=== PATIENT | male | born 1960 | race Caucasian/White ===

== ENCOUNTER 2019-10-23 17:39 | Emergency (ER) | payer OTHER ==
[~2019-10-23] VITALS: Ht 180.3 cm; Wt 121.6 kg
[2019-10-23] MEDS ORDERED: ONDANSETRON HCL INJ 2MG/ML 2ML 2 MG/ML VIAL IV ONE (17:56)
[2019-10-23] MEDS ORDERED: MORPHINE SULFATE INJ 4 MG/ML INJ 1ML IV PRN (18:00)
[2019-10-23 18:27] LABS: BASOPHILS % 0.3 % (0.0-1.0); EOSINOPHILS # (AUTO) 0.1 (0.0-0.4); HEMATOCRIT 40.9 % (38.2-49.6); HEMOGLOBIN 14.1 g/dL (14.0-18.0); LYMPHOCYTES # (AUTO) 3.4 (1.0-3.2); LYMPHOCYTES % 34.9 % (18.0-39.1); MEAN CORPUSCULAR HEMOGLOBIN 30.8 pg (28-32); MEAN CORPUSCULAR HGB CONC 34.5 g/dL (31-35); MEAN CORPUSCULAR VOLUME 89.3 fL (81-99); MONOCYTES # (AUTO) 0.6 (0.2-0.8); NEUTROPHILS # (AUTO) 5.5 (2.1-6.9); NEUTROPHILS % 57.5 % (38.7-80.0); PLATELET COUNT 229 x10e3/uL (140-360); RED BLOOD COUNT 4.58 x10e6/uL (4.3-5.7)
[2019-10-23 18:47] LABS: CLARITY,URINE SL CLOUDY (CLEAR); COLOR,URINE YELLOW (YELLOW)
[2019-10-23 18:48] LABS: ALANINE AMINOTRANSFERASE 48 IU/L (0-55); ALBUMIN 4.1 g/dL (3.5-5.0); ALBUMIN/GLOBULIN RATIO 1.2 (0.8-2.0); ALKALINE PHOSPHATASE 72 IU/L (40-150); ANION GAP 14.7 mmol/L (8-16); BILIRUBIN,URINE NEGATIVE (NEGATIVE); BLOOD UREA NITROGEN 18 mg/dL (7-26); BUN/CREATININE RATIO 19 (6-25); CALCIUM 9.2 mg/dL (8.4-10.2); CARBON DIOXIDE 23 mmol/L (22-29); CHLORIDE 103 mmol/L (98-107); CREATININE, SERUM 0.96 mg/dL (0.72-1.25); EST GLOMERULAR FILTRATION RATE > 60 ML/MIN (60-); GLUCOSE 100 mg/dL (74-118); KETONES,URINE NEGATIVE (NEGATIVE); LEUKOCYTE ESTERASE ,URINE NEGATIVE (NEGATIVE); LIPASE 26 U/L (8-78); NITRITE,URINE NEGATIVE (NEGATIVE); POTASSIUM 3.7 mmol/L (3.5-5.1); PROTEIN,URINE DIPSTICK NEGATIVE (NEGATIVE); SODIUM 137 mmol/L (136-145); URINE UROBILINOGEN 0.2 mg/dL (0.2 - 1)
--- NOTE | 2019-10-23 18:52 | Diagnostic Imaging Report ---
EXAMINATION: CT of the abdomen and pelvis without contrast. TECHNIQUE: Spiral CT images of the abdomen and pelvis were performed from the lung bases to the lesser trochanters. No intravenous contrast was given per physician's request. Coronal and sagittal reformatted images were obtained. COMPARISON: None. CLINICAL HISTORY:Abdominal pain for 2 days, left side, loss of appetite. History of lithotripsy for bladder stones. DISCUSSION: ABSENCE OF INTRAVENOUS CONTRAST DECREASES SENSITIVITY FOR DETECTION OF FOCAL LESIONS AND VASCULAR PATHOLOGY. ABDOMEN/PELVIS: LOWER THORAX: Lung bases are clear. Atherosclerotic calcification of the coronary arteries. HEPATOBILIARY: Decreased attenuation of the hepatic parenchyma predominantly involving the right hepatic lobe, consistent with radiographic steatosis. No focal lesions. No intra or extrahepatic biliary ductal dilation. GALLBLADDER: Cholecystectomy clips. SPLEEN: No splenomegaly. PANCREAS: No focal masses or ductal dilatation. ADRENALS: No adrenal nodules. KIDNEYS/URETERS: 2 mm nonobstructing calculus in the left inferior pole (series 3, image 89). No other renal or any ureteral calculi, hydronephrosis or obstruction. No contour abnormalities or significant perinephric stranding. PELVIC ORGANS/BLADDER: 2.2 cm irregular shaped radiopaque density noted in the left dependent portion of the bladder lumen (series 3, image 155). No wall thickening. No focal lesions. Prostate is enlarged. Multiple pelvic phleboliths. PERITONEUM/RETROPERITONEUM: No free air or fluid. LYMPH NODES: No intra-abdominal,retroperitoneal, pelvic or inguinal lymphadenopathy. VESSELS: Atherosclerotic calcification of the abdominal aorta, aortic branches and iliac vessels. GI TRACT: No bowel dilation or evidence of obstruction. Metallic clips distal to the cecum likely from prior appendectomy. No wall thickening. Stomach is unremarkable. BONES AND SOFT TISSUES: No aggressive lytic lesions. Multilevel degenerative disc changes in the lower thoracic and lumbosacral spine. Mild osteopenia. 5 mm focal sclerotic lesion in the left iliac bone (series 3, image 133) has a nonaggressive appearance and likely represents a bone island. A similar 5-6 mm sclerotic lesion is noted in the left acetabulum (series 3, image 170). Small bilateral fat containing inguinal hernias. IMPRESSION: 1. No acute abdominopelvic abnormalities. 2. 2 mm nonobstructing calculus in the left inferior renal pole. No other renal or any ureteral calculi, hydronephrosis or obstruction. 3. 2.2 cm irregular shaped calcification in the left dependent portion of the bladder lumen, which may represent sequela of prior lithotripsy/small bladder stones. 4. Hepatic steatosis predominantly involving the right lobe. Signed by: Dr. Mode Mason M.D. on 10/23/2019 6:49 PM
[2019-10-23 18:57] LABS: BACTERIA,URINE MODERATE /HPF; EPITHELIAL CELLS,URINE FEW /LPF; MUCUS,URINE MODERATE (RARE); RBC,URINE 0-5 /HPF (0-5)
--- OUTSIDE RECORDS SUMMARY | 2019-10-31 11:31 | XMS REPORT | Encounter Summary ---
Author Organization Unknown Address [address] [place] [id number] Phone [phone] Care Team Providers Care Book Store Associate Name Role Phone Dr. Álvaro Slade 3 [phone] Tyron Lubin MD 115 [phone] Reason for Visit Bilateral abdominal pain Instructions 1. Obesity learning about healthy weight 2. Influenza vaccination declined 3. Vaccine refused by patient 4. Abdominal pain urinalysis, dipstick go to emergency room Discussion Note: None recorded. Plan of Care Patient Instructions attend ER stat Reminders Provider Appointments None recorded. Lab Urinalysis, Dipstick 10/23/2019 [facility] Referral None recorded. Procedures None recorded. Surgeries None recorded. Imaging None recorded. Medications Name Start Date finasteride 5 mg tablet Take 1 tablet every day by oral route. tamsulosin 0.4 mg capsule Take 1 capsule every day by oral route. Medications Administered None recorded. Vitals Height Weight BMI Blood Pressure 5 ft 10 in 268.4 lbs 38.5 kg/m2 130/84 mm[Hg] Results Lab Results Date Name Specimen Result Interpretation Description Value Range Status Address Urinalysis, Dipstick Color Glucose negative [facility]: [address] [facility] [place] Color Bilirubin negative [facility]: [address] [facility] [place] Color Ketones negative [facility]: [address] [place] Color Specific [place] 1.030 [facility]: [address] [place] Color Blood trace [facility] [address] [place] Color PH 5.5 [facility]: [address] [facility] [place] Color Protein negative [facility]: [address] [facility] [place] Color Urobilinogen 0.2 [facility]: [address] [facility] Color Nitrites negative [facility]: [address] [facility] Color Leukocytes negative [facility] [address] [facility] Allergies Code Code System Name Reaction Severity Status Onset Iodinated Contrast Media Itching Moderate to Severe Active Problems No Known Problems Procedures Date Name Performed by 11/12/2017 Other Information not available 11/12/2015 Colonoscopy Information not available 11/12/2013 Cholecystectomy (Gall Bladder Removal) Information not available 11/12/2012 Knee Replacement Information not available Vaccine List None recorded. Social History Tobacco Smoking Status Never Smoker Past Encounters 10/23/2019 Obesity; Influenza Vaccination Declined; Vaccine Refused by Patient; Abdominal Pain Álvaro Slade MD: [address] [place] [address], Ph. History of Present Illness Abdominal Pain Reported By: Patient Note:2 week h/o r/l l q pain<div>3 d h/o < appetite wth assoc diarrhoea,vomited once,able to tolerate water to day</div><div>pmsh- cholecystectomy/appendectomy/bladder calculi</div> Review of Systems:ROS as noted in the HPI Review of Systems None recorded. Physical Exam Brief Abdominal Pain Exam Reported By: Patient Constitutional: General Appearance: well-developed, well-nourished, healthy-appearing, alert, oriented, NAD, mucous membranes moist Cardiovascular: Heart Auscultation: S1 present, S2 present, no murmurs, no click Lungs: Lungs: clear to auscultation bilaterally, no wheezing, no crackles Abdomen: Inspection and Palpation: soft, bowel sounds 4 quadrants, non-distended, LLQ tenderness
--- OUTSIDE RECORDS SUMMARY | 2019-10-31 11:31 | XMS REPORT ---
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 Allergies, Adverse Reactions, Alerts This patient has no known allergies or adverse reactions. Medications This patient has no known medications. Results Test Description Test Time Test Comments Text Results Atomic Results Result Comments CT ABDOMEN/PELVIS WO 2019-10-23 18:41:00 [place] [address] Patient Name: MARIMAR TERRY MR #: [id number] : 1960 Age/Sex: 59/M Req #: [id number] Adm Physician: Ordered by: CARLOS WOODS DO Report #: [id number] Location: ER Room/Bed: Procedure: [id number] CT/CT ABDOMEN/PELVIS WO Exam Date: 10/23/19 Exam Time: 1825 REPORT STATUS: Signed EXAMINATION: CT of the abdomen and pelvis without contrast. TECHNIQUE: Spiral CT images of the abdomen and pelvis were performed from the lung bases to the lesser trochanters. No intravenous contrast was given per physician's request. Coronal and sagittal reformatted images were obtained. COMPARISON: None. CLINICAL HISTORY:Abdominal pain for 2 days, left side, loss of appetite. History of lithotripsy for bladder stones. DISCUSSION: ABSENCE OF INTRAVENOUS CONTRAST DECREASES SENSITIVITY FOR DETECTION OF FOCAL LESIONS AND VASCULAR PATHOLOGY. ABDOMEN/PELVIS: LOWER THORAX: Lung bases are clear. Atherosclerotic calci fication of the coronary arteries. HEPATOBILIARY: Decreased attenuation of the hepatic parenchyma predominantly involving the right hepatic lobe, consistent with radiographic steatosis. No focal lesions. No intra or extrahepatic biliary ductal dilation. GALLBLADDER: Cholecystectomy clips. SPLEEN: No splenomegaly. PANCREAS: No focal masses or ductal dilatation. ADRENALS: No adrenal nodules. KIDNEYS/URETERS: 2 mm nonobstructing calculus in the left inferior pole (series 3, image 89). No other renal or any ureteral calculi, hydronephrosis or obstruction. No contour abnormalities or significant perinephric stranding. PELVIC ORGANS/BLADDER: 2.2 cm irregular shaped radiopaque density noted in the left dependent portion of the bladder lumen (series 3, image 155). No wall thickening. No focal lesions. Prostate is enlarged. Multiple pelvic phleboliths. PERITONEUM/RETROPERITONEUM: No free air or fluid. LYMPH NODES: No intra-abdominal,retroperitoneal, pelvic or inguinal lymphadenopathy. VESSELS: Atherosclerotic calcification of the abdominal aorta, aortic branches and iliac vessels. GI TRACT: No bowel dilation or evidence of obstruction. Metallic clips distal to the cecum likely from prior appendectomy. No wall thickening. Stomach is unremarkable. BONES AND SOFT TISSUES: No aggressive lytic lesions. Multilevel degenerative disc changes in the lower thoracic and lumbosacral spine. Mild osteopenia. 5 mm focal sclerotic lesion in the left iliac bone (series 3, image 133) has a nonaggressive appearance an d likely represents a bone island. A similar 5-6 mm sclerotic lesion is noted in the left acetabulum (series 3, image 170). Small bilateral fat containing inguinal hernias. IMPRESSION: 1. No acute abdominopelvic abnormalities. 2. 2 mm nonobstructing calculus in the left inferior renal pole. No other renal or any ureteral calculi, hydronephrosis or obstruction. 3. 2.2 cm irregular shaped calcification in the left dependent portion of the bladder lumen, which may represent sequela of prior lithotripsy/small bladder stones. 4. Hepatic steatosis predominantly involving the right lobe. Signed by: Dr. Julieta Mason M.D. on 10/23/2019 6:49 PM Dictated By: JULIETA MASON MD 48 Transcribed By: KATHERINE on 10/23/191848 COPY TO: CARLOS WOODS DO [place] count 2018-09-22 07:59:00 <10,000 CFU/ML.^<10,000 CFU/ML.^L Urine culture 2018-09-22 07:59:00 Urine culture (test qxse=944-3) NO GROWTH Microscopic examination of [id number] 18:51:00* Test Item Value Reference Range Comments Urine WBC (test code=UWBC) 5-10 <5 Urine sediment erythrocyte count by microscopy (number/high power field) (test lbmk=67974-2) <5 NONE SEEN Bacteria detection in urine sediment by light microscopy (test gnlk=47246-3) <20 NONE SEEN Sqamous Epithelial (test code=SQEP) <5 NONE SEEN Urinalysis with reflex to culture (test tuti=40789-6) REFLEXED Amorphous sediment detection in urine sediment by light microscopy (test lxuc=2779-1) 4+ NONE SEEN [place], 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 Lubin, as an intra-procedure imaging consultation was not requested. Reported fluoroscopy time: 0.07 minutes. Signed: Louis Shanks Verified Date/Time: 08/22/2018 16:11:16 Reading Location: [address] Consult Reading Room E [id number] 07:20:00* Test Item Value Reference Range Comments CULTURE (BEAKER) (test tnfu=3625) No growth BASIC METABOLIC [id number] 11:14:00* Test Item Value Reference Range Comments SODIUM (BEAKER) (test lamn=664) 141 meq/L 136-145 POTASSIUM (BEAKER) (test ukmi=109) 3.8 meq/L 3.5-5.1 CHLORIDE (BEAKER) (test acjf=736) 105 meq/L 98-107 CO2 (BEAKER) (test gntu=217) 27 meq/L 22-29 BLOOD UREA NITROGEN (BEAKER) (test hrzo=339) 20 mg/dL 7-21 CREATININE (BEAKER) (test xjln=683) 0.79 mg/dL 0.57-1.25 GLUCOSE RANDOM (BEAKER) (test ybsm=466) 107 mg/dL 70-105 CALCIUM (BEAKER) (test ahtl=061) 9.5 mg/dL 8.4-10.2 EGFR (BEAKER) (test scqm=2963) 102 mL/min/1.73 sq m ESTIMATED GFR IS NOT ACCURATE CREATININE CLEARANCE IN PREDICTING GLOMERULAR FILTRATION RATE. ESTIMATED GFR IS NOT APPLICABLE FOR DIALYSIS PATIENTS. PROTHROMBIN TIME/[id number] 11:10:00* Test Item Value Reference Range Comments PROTIME (BEAKER) (test exqi=136) 13.8 seconds 11.7-14.7 INR (BEAKER) (test sott=919) 1.1 <=5.9 RECOMMENDED COUMADIN/WARFARIN INR THERAPY RANGESSTANDARD DOSE: 2.0 - 3.0 Inclu addie: PROPHYLAXIS for venous thrombosis, systemic embolization; TREATMENT for jessica ous thrombosis and/or pulmonary embolus.HIGH RISK: Target INR is 2.5-3.5 for pat ients with mechanical heart valves.[id number] 11:10:00* Test Item Value Reference Range Comments PARTIAL THROMBOPLASTIN TIME (BEAKER) (test jyju=493) 33.8 seconds 22.5-36.0 CBC W/PLT COUNT & AUTO [id number] 10:56:00* Test Item Value Reference Range Comments WHITE BLOOD CELL COUNT (BEAKER) (test rjvv=683) 10.3 K/ L 3.5-10.5 RED BLOOD CELL COUNT (BEAKER) (test neld=573) 4.50 M/ L 4.63-6.08 HEMOGLOBIN (BEAKER) (test bbqv=433) 13.8 GM/DL 13.7-17.5 HEMATOCRIT (BEAKER) (test pwqx=418) 41.6 % 40.1-51.0 MEAN CORPUSCULAR VOLUME (BEAKER) (test mirr=241) 92.4 fL 79.0-92.2 MEAN CORPUSCULAR HEMOGLOBIN (BEAKER) (test wchk=813) 30.7 pg 25.7-32.2 MEAN CORPUSCULAR HEMOGLOBIN CONC (BEAKER) (test qvwj=716) 33.2 GM/DL 32.3-36.5 RED CELL DISTRIBUTION WIDTH (BEAKER) (test kudx=035) 12.3 % 11.6-14.4 PLATELET COUNT (BEAKER) (test nzdf=659) 222 K/CU MM 150-450 MEAN PLATELET VOLUME (BEAKER) (test sbie=618) 9.8 fL 9.4-12.4 NUCLEATED RED BLOOD CELLS (BEAKER) (test hqhm=517) 0 /100 WBC 0-0 NEUTROPHILS RELATIVE PERCENT (BEAKER) (test opab=486) 64 % LYMPHOCYTES RELATIVE PERCENT (BEAKER) (test yhlm=544) 29 % MONOCYTES RELATIVE PERCENT (BEAKER) (test blcy=827) 6 % EOSINOPHILS RELATIVE PERCENT (BEAKER) (test fsad=536) 1 % BASOPHILS RELATIVE PERCENT (BEAKER) (test xwof=631) 0 % NEUTROPHILS ABSOLUTE COUNT (BEAKER) (test uher=617) 6.55 K/ L 1.78-5.38 LYMPHOCYTES ABSOLUTE COUNT (BEAKER) (test hwhp=785) 2.98 K/ L 1.32-3.57 MONOCYTES ABSOLUTE COUNT (BEAKER) (test oaoz=580) 0.61 K/ L 0.30-0.82 EOSINOPHILS ABSOLUTE COUNT (BEAKER) (test ytbh=697) 0.08 K/ L 0.04-0.54 BASOPHILS ABSOLUTE COUNT (BEAKER) (test jelj=921) 0.04 K/ L 0.01-0.08 IMMATURE GRANULOCYTES-RELATIVE PERCENT (BEAKER) (test kxwq=0137) 0 % 0-1 URINALYSIS W/ [id number] 09:37:00* Test Item Value Reference Range Comments COLOR (BEAKER) (test curw=132) Yellow CLARITY (BEAKER) (test vbqp=183) Hazy SPECIFIC GRAVITY UA (BEAKER) (test qltj=444) 1.020 1.001-1.035 PH UA (BEAKER) (test sxis=351) 5.5 5.0-8.0 PROTEIN UA (BEAKER) (test yvpi=509) 10 mg/dL Negative GLUCOSE UA (BEAKER) (test iegk=248) Negative Negative KETONES UA (BEAKER) (test dkgt=695) Negative Negative BILIRUBIN UA (BEAKER) (test pekl=315) Negative Negative BLOOD UA (BEAKER) (test qtav=719) Negative Negative NITRITE UA (BEAKER) (test lpgs=416) Negative Negative LEUKOCYTE ESTERASE UA (BEAKER) (test wgko=487) Negative Negative UROBILINOGEN UA (BEAKER) (test mroe=523) 0.2 mg/dL 0.2-1.0 RBC UA (BEAKER) (test zwdx=274) < /HPF WBC UA (BEAKER) (test drlp=370) 4 /HPF BACTERIA (BEAKER) (test btis=486) Occasional MUCUS (BEAKER) (test tmzw=1069) Rare SQUAMOUS EPITHELIAL (BEAKER) (test zfdy=224) < /HPF HYALINE CASTS (BEAKER) (test vaux=484) 1 /LPF CALCIUM OXALATE CRYSTALS (BEAKER) (test uabu=005) Occasional SOURCE(BEAKER) (test fvez=1417) Abdomen Pelvis Wo [id number] 17:10:00[facility] [place] [address] RADIOLOGY SERVICES REPORT Name: MARIMAR TERRY Acct Number: [id number] :1960 Age:57 Sex:M Ord Phys: Tyron Lubin MD Unit Number: [id number] [facility] [address]: Status: REG REF RAD Exam Date: 07/17/18 EXAM DESCRIPTION: CT - Abdomen Pelvis Wo Contrast - 07/17/2018 4:46 pm CLINICAL HISTORY: Abdominal pain /dysuria ICD R30.9 COMPARISON: None TECHNIQUE: Computed axial tomography of the abdomen and pelvis was obtained. IV and oral contrast were not requested. All CT scans are performed using dose optimization technique as appropriate and may include automated exposure control or mA/KV adjustment according to patient size. FINDINGS: The evaluation of solid organs, vessels and bowel is limited secondary to the lack of contrast administration. The liver, spleen, pancreas, adrenals and kidneys appear grossly normal. Multiple bladder calculi are present. The prostate gland is markedly enlarged. Bilateral hernias contain fat. Mild diastases of the rectus abdominis muscles is noted. There is no evidence of diverticulitis. IMPRESSION: Multiple bladder calculi Marked prostatic hypertrophy Signed By: Oziel Mcneal MD Signed AT: 07/17/18 1710 Microscopic examination of [id number] 21:46:00* Test Item Value Reference Range Comments Urine WBC (test code=UWBC) <5 <5 Urine sediment erythrocyte count by microscopy (number/high power field) (test fpyd=97182-6) <5 NONE SEEN Bacteria detection in urine sediment by light microscopy (test nysx=13602-5) <20 NONE SEEN Sqamous Epithelial (test code=SQEP) <5 NONE SEEN Urinalysis with reflex to culture (test kyty=99340-2) NOT NEEDED Culture is not indicated. Mucus detection in urine sediment by light microscopy (test dmad=2648-0) SLIGHT NONE SEEN Amorphous sediment detection in urine sediment by light microscopy (test zrdw=5276-0) TRACE NONE SEEN [place] [id number] 09:20:00Not Done^Not Done^L^NDUrine [id number] 09:20:00* Test Item Value Reference Range Comments Urine culture (test xrpl=893-3) NO GROWTH Prostate specific Ag [Mass/volume] in Serum or [id number] 13:28:00* Test Item Value Reference Range Comments Prostate specific Ag [Mass/volume] in Serum or Plasma (test jfdi=9752-4) 5.17 ng/mL 0-4.00 Microscopic examination of [id number] 18:57:00* Test Item Value Reference Range Comments Urine WBC (test code=UWBC) <5 <5 Urine sediment erythrocyte count by microscopy (number/high power field) (test uvlz=73642-7) <5 NONE SEEN Bacteria detection in urine sediment by light microscopy (test piwz=18677-5) 20-50 NONE SEEN Sqamous Epithelial (test code=SQEP) 5-10 NONE SEEN Urinalysis with reflex to culture (test qzjm=04082-5) REFLEXED Mucus detection in urine sediment by light microscopy (test eyqp=9366-1) 3+ NONE SEEN
== END 2019-10-23 19:38 | disposition home or self-care (01) ==
LOC: ER 17:39
DX: R10.32 Left lower quadrant pain (principal); R11.2 Nausea with vomiting, unspecified; K76.0 Fatty (change of) liver, not elsewhere classified; K40.90 Unilateral inguinal hernia, without obstruction or gangrene, not specified as recurrent
CPT/HCPCS: 36415; 74176; 80053; 81001; 83690; 85025; 99284; J2270; J2405